=== PATIENT | male | born 1995 | race Caucasian/White ===

== ENCOUNTER 2016-08-09 17:42 | Emergency (ER) | payer OTHER ==
[2016-08-09 17:54] VITALS: PULSE 58; RESP 16; TEMP 98.4; O2SAT 97
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
[2016-08-09] MEDS ORDERED: fentaNYL 100 MCG/2 ML INJ ONE (18:27)
[2016-08-09] MEDS ORDERED: fentaNYL 100 MCG/2 ML INJ IVP ONE (18:29)
[2016-08-09] MEDS ORDERED: KETOROLAC 30 MG/1 ML SDV ONE (18:49)
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
[2016-08-09] MEDS ORDERED: KETOROLAC 30 MG/1 ML SDV IVP ONE (18:53)
[2016-08-09] MEDS ORDERED: ONDANSETRON 4MG PREPACK#2 BTL TAKEHOME ONE (18:59)
[2016-08-09] MEDS ORDERED: HYDROCOD/APAP 5/325 PREPACK#6 BTL TAKEHOME ONE (18:59)
[2016-08-09] MEDS ORDERED: CYCLOBENZAPRINE 10MG PREPACK#3 BTL TAKEHOME ONE (18:59)
[2016-08-09 19:37] VITALS: BP 123/76
== END 2016-08-09 19:30 | disposition home or self-care (01) ==
DX: S39.92XA Unspecified injury of lower back, initial encounter (principal); V96 Accident to nonpowered aircraft causing injury to occupant; Y99.8 Other external cause status; Y93.19 Activity, other involving water and watercraft
CPT/HCPCS: 82947-QW; 96374; J1885; J3010